=== PATIENT | female | born 1970 | race Caucasian/White ===

== ENCOUNTER 2016-11-27 16:53 | Emergency (ER) | payer OTHER ==
[~2016-11-27] VITALS: Ht 175.3 cm; Wt 120.0 kg
[~2016-11-27 16:53] MED LIST: AMOX500T PO; HYDR-3533 PO; LORTA5 PO; PENI500T PO; Z.0.NO CURRENT MEDS
[2016-11-27 16:55] VITALS: BP 145/78; PULSE 80; RESP 20; TEMP 97.8; O2SAT 97
--- NOTE | 2016-11-27 18:21 | PD ---
HPI Chief Complaint: Abdominal Pain Time Seen by Provider: 18:21 Travel History International Travel<30 days: No Contact w/Intl Traveler<30days: No Traveled to known affect area: No History of Present Illness HPI 46-year-old female with no significant medical history presents to the emergency department for evaluation of low back pain radiating into her lower abdomen. The pelvic pain has been a dull and constant for the last couple weeks but over the last 4-5 days and has began to radiate to her suprapubic area. She believes she may have a UTI. Reports mild increase in urinary urgency and frequency. States that her urine has had a different smell. She has been drinking cranberry juice with no improvement in her symptoms. Denies any vaginal bleeding or discharge. Mild nausea without vomiting. No fever or chills. No other symptoms to report. PFSH Past Medical History Medical History: Denies Significant Hx Arthritis: No Blood Disorders: No Anxiety: No Depression: No Cancer: No Cardiovascular Problems: No Chemotherapy: No Cerebrovascular Accident: No Diminished Hearing: No Endocrine: No Genitourinary: No Headaches: No Immune Disorder: No Musculoskeletal: No Neurologic: No Psychiatric: No Reproductive: No Respiratory: No Migraines: No Radiation Therapy: No Seizures: No ?: Not Menopausal: No : 7 Para: 3 Miscarriage: 4 Tubal Ligation: Yes Past Surgical History Abdominal Surgery: No AICD: No Arteriovenous Shunt: No Body Medical Devices: TONGUE PIERCING Cardiac Surgery: No Ear Surgery: No Endocrine Surgery: No Eye Surgery: No Genitourinary Surgery: No Gynecologic Surgery: Yes (TUBAL LIGATION) Insulin Pump: No Joint Replacement: No Oral Surgery: No Pacemaker: No Thoracic Surgery: No Other Surgery: Yes Social History Alcohol Use: Yes (OCCASIONAL) Tobacco Use: Yes (1 AND 1/2 PPD) Substance Use: No Allergies-Medications (Allergen,Severity, Reaction): Coded Allergies: Bactrim (Verified Allergy, Severe, RASH, N/V, 11/27/16) Reported Meds & Prescriptions Reported Meds & Active Scripts Active No Active Prescriptions or Reported Medications Review of Systems Except as stated in HPI: all other systems reviewed are Neg Physical Exam Narrative GENERAL: Well-nourished female patient, ambulatory and in no acute distress SKIN: Warm and dry. HEAD: Atraumatic. Normocephalic. EYES: Pupils equal and round. No scleral icterus. No injection or drainage. ENT: No nasal bleeding or discharge. Mucous membranes pink and moist. NECK: Trachea midline. No JVD. CARDIOVASCULAR: Regular rate and rhythm. No murmur appreciated. RESPIRATORY: No accessory muscle use. Clear to auscultation. Breath sounds equal bilaterally. GASTROINTESTINAL: Abdomen soft, nondistended. Suprapubic tenderness to palpation. Hepatic and splenic margins not palpable. MUSCULOSKELETAL: No obvious deformities. No clubbing. No cyanosis. No edema. NEUROLOGICAL: Awake and alert. No obvious cranial nerve deficits. Motor grossly within normal limits. Normal speech. PSYCHIATRIC: Appropriate mood and affect; insight and judgment normal. Data Data Last Documented VS Vital Signs Date Time Temp Pulse Resp B/P Pulse Ox O2 Delivery O2 Flow Rate FiO2 11/27/16 18:34 18 11/27/16 16:55 97.8 80 145/78 97 Room Air Orders Urinalysis - C+S If Indicated (11/27/16 18:21) Complete Blood Count With Diff (11/27/16 18:21) Basic Metabolic Panel (Bmp) (11/27/16 18:21) Ed Urine Pregnancytest Poc (11/27/16 19:18) Labs Laboratory Tests Test 11/27/16 11/27/16 18:35 18:40 White Blood Count 10.8 TH/MM3 Red Blood Count 5.14 MIL/MM3 Hemoglobin 15.1 GM/DL Hematocrit 44.3 % Mean Corpuscular Volume 86.2 FL Mean Corpuscular Hemoglobin 29.4 PG Mean Corpuscular Hemoglobin 34.1 % Concent Red Cell Distribution Width 13.7 % Platelet Count 401 TH/MM3 Mean Platelet Volume 7.7 FL Neutrophils (%) (Auto) 55.5 % Lymphocytes (%) (Auto) 31.5 % Monocytes (%) (Auto) 9.0 % Eosinophils (%) (Auto) 2.9 % Basophils (%) (Auto) 1.1 % Neutrophils # (Auto) 6.0 TH/MM3 Lymphocytes # (Auto) 3.4 TH/MM3 Monocytes # (Auto) 1.0 TH/MM3 Eosinophils # (Auto) 0.3 TH/MM3 Basophils # (Auto) 0.1 TH/MM3 CBC Comment DIFF FINAL Differential Comment Sodium Level 140 MEQ/L Potassium Level 3.8 MEQ/L Chloride Level 106 MEQ/L Carbon Dioxide Level 28.4 MEQ/L Anion Gap 6 MEQ/L Blood Urea Nitrogen 13 MG/DL Creatinine 0.86 MG/DL Estimat Glomerular Filtration 72 ML/MIN Rate Random Glucose 103 MG/DL Calcium Level 8.9 MG/DL Urine Color YELLOW Urine Turbidity HAZY Urine pH 6.5 Urine Specific [place] 1.022 Urine Protein NEG mg/dL Urine Glucose (UA) NEG mg/dL Urine Ketones NEG mg/dL Urine Occult Blood NEG Urine Nitrite NEG Urine Bilirubin NEG Urine Urobilinogen 2.0 MG/DL Urine Leukocyte Esterase TRACE Urine RBC LESS THAN 1 /hpf Urine WBC 3 /hpf Urine Squamous Epithelial 5 /hpf Cells Urine Bacteria RARE /hpf Urine Mucus FEW /lpf Urine Yeast (Budding) RARE Microscopic Urinalysis Comment CULT NOT INDICATED MDM Medical Decision Making Medical Screen Exam Complete: Yes Emergency Medical Condition: Yes Medical Record Reviewed: Yes Differential Diagnosis Cystitis versus vaginitis versus urethritis versus pyelonephritis versus low back strain versus discogenic pain versus renal calculi Narrative Course 46-year-old female presents to the emergency department for evaluation. Workup is initiated in triage. Once a medical bed becomes available, patient will be transferred and care assumed by Dr. wise. Scripts No Active Prescriptions or Reported Meds Condition: Stable Linda Almaguer Nov 27, 2016 18:21
[2016-11-27 19:01] LABS: BASOPHIL # 0.1 TH/MM3 (0-0.2); BASOPHIL % 1.1 % (0.0-2.0); EOSINOPHIL # 0.3 TH/MM3 (0-0.4); EOSINOPHIL % 2.9 % (0.0-4.0); HEMATOCRIT 44.3 % (35.0-46.0); HEMO FLAGS DIFF FINAL; LYMPH % 31.5 % (9.0-44.0); LYMPHOCYTE # 3.4 TH/MM3 (1.0-4.8); MEAN CELL VOLUME 86.2 FL (80.0-100.0); MEAN CORPUSCULAR HEMOGLOBIN 29.4 PG (27.0-34.0); MEAN CORPUSCULAR HGB CONC 34.1 % (32.0-36.0); NEUT % 55.5 % (16.0-70.0); PLATELET COUNT 401 TH/MM3 (150-450); RED BLOOD COUNT 5.14 MIL/MM3 (4.00-5.30); RED CELL DISTRIBUTION WIDTH 13.7 % (11.6-17.2); WHITE BLOOD COUNT 10.8 TH/MM3 (4.0-11.0)
--- NOTE | 2016-11-27 19:09 | PD ---
Data Data Last Documented VS Vital Signs Date Time Temp Pulse Resp B/P Pulse Ox O2 Delivery O2 Flow Rate FiO2 11/27/16 18:34 18 11/27/16 16:55 97.8 80 145/78 97 Room Air Orders Urinalysis - C+S If Indicated (11/27/16 18:21) Complete Blood Count With Diff (11/27/16 18:21) Basic Metabolic Panel (Bmp) (11/27/16 18:21) Ed Urine Pregnancytest Poc (11/27/16 19:18) Fluconazole (Diflucan) (11/27/16 20:15) Ibuprofen (Motrin) (11/27/16 20:15) Labs Laboratory Tests Test 11/27/16 11/27/16 18:35 18:40 White Blood Count 10.8 TH/MM3 Red Blood Count 5.14 MIL/MM3 Hemoglobin 15.1 GM/DL Hematocrit 44.3 % Mean Corpuscular Volume 86.2 FL Mean Corpuscular Hemoglobin 29.4 PG Mean Corpuscular Hemoglobin 34.1 % Concent Red Cell Distribution Width 13.7 % Platelet Count 401 TH/MM3 Mean Platelet Volume 7.7 FL Neutrophils (%) (Auto) 55.5 % Lymphocytes (%) (Auto) 31.5 % Monocytes (%) (Auto) 9.0 % Eosinophils (%) (Auto) 2.9 % Basophils (%) (Auto) 1.1 % Neutrophils # (Auto) 6.0 TH/MM3 Lymphocytes # (Auto) 3.4 TH/MM3 Monocytes # (Auto) 1.0 TH/MM3 Eosinophils # (Auto) 0.3 TH/MM3 Basophils # (Auto) 0.1 TH/MM3 CBC Comment DIFF FINAL Differential Comment Sodium Level 140 MEQ/L Potassium Level 3.8 MEQ/L Chloride Level 106 MEQ/L Carbon Dioxide Level 28.4 MEQ/L Anion Gap 6 MEQ/L Blood Urea Nitrogen 13 MG/DL Creatinine 0.86 MG/DL Estimat Glomerular Filtration 72 ML/MIN Rate Random Glucose 103 MG/DL Calcium Level 8.9 MG/DL Urine Color YELLOW Urine Turbidity HAZY Urine pH 6.5 Urine Specific [place] 1.022 Urine Protein NEG mg/dL Urine Glucose (UA) NEG mg/dL Urine Ketones NEG mg/dL Urine Occult Blood NEG Urine Nitrite NEG Urine Bilirubin NEG Urine Urobilinogen 2.0 MG/DL Urine Leukocyte Esterase TRACE Urine RBC LESS THAN 1 /hpf Urine WBC 3 /hpf Urine Squamous Epithelial 5 /hpf Cells Urine Bacteria RARE /hpf Urine Mucus FEW /lpf Urine Yeast (Budding) RARE Microscopic Urinalysis Comment CULT NOT INDICATED MDM Supervised Visit with ZAIN: Yes Narrative Course Patient care assumed from a daily PAC, patient was seen by Linda in triage as part of provider in triage screening. Is a 46-year-old female presents emergency primary for evaluation of low back pain and lower abdomen pain. Patient has had the abdominal pain for the past 4- 5 weeks. Patient does have a burning sensation in her private area. Patient states been burning when she pieces well. After being roomed in the emergency department from provider in triage her UA is noted is negative. Discussed with her indications for genitourinary exam at this time. Discussed with her that there is some yeast in her urine likely contaminant from vaginal discharge. 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 GENERAL: Well-developed well-nourished no apparent distress SKIN: Warm and dry. HEAD: Atraumatic. Normocephalic. EYES: Pupils equal and round. No scleral icterus. No injection or drainage. ENT: No nasal bleeding or discharge. Mucous membranes pink and moist. NECK: Trachea midline. No JVD. CARDIOVASCULAR: Regular rate and rhythm. No murmur appreciated. RESPIRATORY: No accessory muscle use. Clear to auscultation. Breath sounds equal bilaterally. GASTROINTESTINAL: Abdomen soft, non-tender, nondistended. Hepatic and splenic margins not palpable. MUSCULOSKELETAL: No obvious deformities. No clubbing. No cyanosis. No edema. Patient has some mild right lower back tenderness without palpable spasm. Straight leg raise negative, full range of motion in bilateral lower extremities. Pulses motor and sensory intact bilaterally extremity's. No midline CT or L-spine tenderness. NEUROLOGICAL: Awake and alert. No obvious cranial nerve deficits. Motor grossly within normal limits. Normal speech. PSYCHIATRIC: Appropriate mood and affect; insight and judgment normal. Physical exam completely reassuring labs reassuring. Patient given Diflucan in the emergency department. Ibuprofen as well as she is driving home. 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 test negative in the emergency department. Diagnosis Primary Impression: Yeast infection Additional Impression: Back spasm Departure Forms: Tests/Procedures, Work Release Enter return to work date: Nov 29, 2016 Med/Other Pt SpecificInfo: Prescription(s) given Scripts Cyclobenzaprine (Flexeril)10 Mg Tab10 Mg PO TID #20 TAB Ref 0 Prov:Herminio Sepulveda MD 11/27/16 Disposition: 01 DISCHARGE HOME Condition: Stable Herminio Sepulveda MD Nov 27, 2016 19:09
--- NOTE | 2016-11-27 19:09 | PD ---
HPI Chief Complaint: Abdominal Pain Time Seen by Provider: 19:10 Travel History International Travel<30 days: No Contact w/Intl Traveler<30days: No Traveled to known affect area: No PFSH Past Medical History Medical History: Denies Significant Hx Arthritis: No Blood Disorders: No Anxiety: No Depression: No Cancer: No Cardiovascular Problems: No Chemotherapy: No Cerebrovascular Accident: No Diminished Hearing: No Endocrine: No Genitourinary: No Headaches: No Immune Disorder: No Musculoskeletal: No Neurologic: No Psychiatric: No Reproductive: No Respiratory: No Migraines: No Radiation Therapy: No Seizures: No Tetanus Vaccination: > 5 Years Influenza Vaccination: No ?: Not Menopausal: No : 7 Para: 3 Miscarriage: 4 Tubal Ligation: Yes Past Surgical History Abdominal Surgery: No AICD: No Arteriovenous Shunt: No Body Medical Devices: TONGUE PIERCING Cardiac Surgery: No Ear Surgery: No Endocrine Surgery: No Eye Surgery: No Genitourinary Surgery: No Gynecologic Surgery: Yes (TUBAL LIGATION) Insulin Pump: No Joint Replacement: No Oral Surgery: No Pacemaker: No Thoracic Surgery: No Other Surgery: Yes Social History Alcohol Use: Yes (OCCASIONAL) Tobacco Use: Yes (1 AND 1/2 PPD) Substance Use: No Allergies-Medications (Allergen,Severity, Reaction): Coded Allergies: Bactrim (Verified Allergy, Severe, RASH, N/V, 11/27/16) Reported Meds & Prescriptions Reported Meds & Active Scripts Active No Active Prescriptions or Reported Medications Data Data Last Documented VS Vital Signs Date Time Temp Pulse Resp B/P Pulse Ox O2 Delivery O2 Flow Rate FiO2 11/27/16 18:34 18 11/27/16 16:55 97.8 80 145/78 97 Room Air Orders Urinalysis - C+S If Indicated (11/27/16 18:21) Complete Blood Count With Diff (11/27/16 18:21) Basic Metabolic Panel (Bmp) (11/27/16 18:21) Labs Laboratory Tests Test 11/27/16 18:35 White Blood Count 10.8 TH/MM3 Red Blood Count 5.14 MIL/MM3 Hemoglobin 15.1 GM/DL Hematocrit 44.3 % Mean Corpuscular Volume 86.2 FL Mean Corpuscular Hemoglobin 29.4 PG Mean Corpuscular Hemoglobin 34.1 % Concent Red Cell Distribution Width 13.7 % Platelet Count 401 TH/MM3 Mean Platelet Volume 7.7 FL Neutrophils (%) (Auto) 55.5 % Lymphocytes (%) (Auto) 31.5 % Monocytes (%) (Auto) 9.0 % Eosinophils (%) (Auto) 2.9 % Basophils (%) (Auto) 1.1 % Neutrophils # (Auto) 6.0 TH/MM3 Lymphocytes # (Auto) 3.4 TH/MM3 Monocytes # (Auto) 1.0 TH/MM3 Eosinophils # (Auto) 0.3 TH/MM3 Basophils # (Auto) 0.1 TH/MM3 CBC Comment DIFF FINAL Differential Comment MDM Scripts No Active Prescriptions or Reported Meds Condition: Herminio Webber MD Nov 27, 2016 19:09
[2016-11-27 19:13] LABS: BACTERIA, URINE RARE /hpf; BLOOD, URINE NEG (NEG); COMMENT (UR) CULT NOT INDICATED; CULTURE IF INDICATED CULT NOT INDICATED; GLUCOSE,URINE NEG (NEG); KETONE, URINE NEG (NEG); MUCUS URINE FEW /lpf (OCC); NITRITE,URINE NEG (NEG); PH, URINE 6.5 (5.0-8.5); SQUAMOUS EPITHELIAL CELL URINE 5 /hpf (0-5); URINE COLOR YELLOW (YELLW/STRAW)
[2016-11-27 19:26] LABS: BICARBONATE 28.4 MEQ/L (21.0-32.0)
[2016-11-27 19:30] LABS: POTASSIUM 3.8 MEQ/L (3.5-5.1)
[2016-11-27] MEDS ORDERED: IBUPROFEN 600 MG TAB PO ONE (20:15)
[2016-11-27] MEDS ORDERED: FLUCONAZOLE 100 MG TAB PO ONE (20:15)
[2016-11-27] MEDS ORDERED: CYCL1TAB29 PO (20:18)
[2017-03-12] MEDS ORDERED: IBUP200T2 PO (11:06)
[2017-03-12] MEDS ORDERED: LACT10SO PO (11:27)
[2017-03-12] MEDS ORDERED: IBUP-232 PO (11:35)
[2017-03-19] MEDS ORDERED: PRED50 PO (09:43)
[2017-03-19] MEDS ORDERED: MELO7.5T4 PO (09:43)
[2017-03-26] MEDS ORDERED: AMOX500T PO (09:02)
== END 2016-11-27 20:25 | disposition home or self-care (01) ==
LOC: NETRI 16:53 → NEPA 20:25
DX: B37.49 Other urogenital candidiasis (principal); M62.830 Muscle spasm of back
CPT/HCPCS: 80048; 81001; 84703; 85025; 99284

== ENCOUNTER 2017-01-28 22:23 | Observation (INO) | payer OTHER ==
[~2017-01-28] VITALS: Ht 172.7 cm; Wt 105.0 kg
[~2017-01-28 22:23] MED LIST changes: -AMOX500T PO; +CYCL1TAB29 PO; -HYDR-3533 PO; -LORTA5 PO; -PENI500T PO; -Z.0.NO CURRENT MEDS
[2017-01-28 22:26] VITALS: BP 158/84; PULSE 78; RESP 18; TEMP 98.2; O2SAT 100
[2017-01-28] MEDS ORDERED: ONDANSETRON HCL 4 MG/2 ML VIAL IV ONE (23:30)
[2017-01-28] MEDS ORDERED: SODIUM CHLOR 0.9% 1000 ML INJ 1,000 ML IV ONE (23:30)
[2017-01-28 23:56] LABS: AUTOMATED NEUTROPHIL # 7.9 TH/MM3 (1.8-7.7); BASOPHIL # 0.1 TH/MM3 (0-0.2); BASOPHIL % 0.8 % (0.0-2.0); EOSINOPHIL # 0.4 TH/MM3 (0-0.4); EOSINOPHIL % 3.3 % (0.0-4.0); HEMATOCRIT 44.9 % (35.0-46.0); HEMO FLAGS DIFF FINAL; LYMPH % 24.2 % (9.0-44.0); MEAN CELL VOLUME 85.7 FL (80.0-100.0); MEAN CORPUSCULAR HEMOGLOBIN 28.6 PG (27.0-34.0); MEAN CORPUSCULAR HGB CONC 33.4 % (32.0-36.0); MONO % 8.2 % (0.0-8.0); NEUT % 63.5 % (16.0-70.0); PLATELET COUNT 399 TH/MM3 (150-450); RED BLOOD COUNT 5.24 MIL/MM3 (4.00-5.30); RED CELL DISTRIBUTION WIDTH 13.5 % (11.6-17.2); WHITE BLOOD COUNT 12.4 TH/MM3 (4.0-11.0)
--- NOTE | 2017-01-28 23:59 | PD ---
HPI Chief Complaint: Abdominal Pain Time Seen by Provider: 23:19 Travel History International Travel<30 days: No Contact w/Intl Traveler<30days: No Traveled to known affect area: No History of Present Illness HPI The patient is a 46 year old female who presents to the [facility] emergency department with a history of abdominal pain that she reports began when she first woke up to go to work at 4 AM this morning. The patient reports that the pain has been constant. She reports that the pain is present in the right upper quadrant of the abdomen and now travels to her back in the right side of her chest. The patient reports that the pain as a pressure sensation like she has a gas bubble trapped. She reports that she has been moving her bowels normally. She denies any diarrhea. Her last bowel movement was earlier today. She denies having any blood in her stool or black or tarry stools. She denies having any recent weight changes. She denies having any fevers. She reports having nausea but no vomiting. The patient reports that the pain is gradually getting more severe over time. She reports that yesterday she began to have a pressure with urinating and has had urinary frequency, however no urinary urgency. She denies having any blood in her urine. The patient denies any cough, congestion, neck pain, shortness of breath, or neurologic symptoms. LMP: She is currently finishing her menstrual cycle. She reports that it is a normal cycle for her. [facility] Past Medical History Narrative Medical The patient's past medical history is reportedly none. Arthritis: No Blood Disorders: No Anxiety: No Depression: No Cancer: No Cardiovascular Problems: No Chemotherapy: No Cerebrovascular Accident: No Diminished Hearing: No Endocrine: No Genitourinary: No Headaches: No Immune Disorder: No Musculoskeletal: No Neurologic: No Psychiatric: No Reproductive: No Respiratory: No Immunizations Current: Yes Migraines: No Radiation Therapy: No Seizures: No ?: Not Menopausal: No : 7 Para: 3 Miscarriage: 4 Tubal Ligation: Yes Past Surgical History Narrative Surgical The patient's past surgical history is significant for bilateral tubal ligation. Surgical History: No Previous Surgery Abdominal Surgery: No AICD: No Arteriovenous Shunt: No Body Medical Devices: TONGUE PIERCING Cardiac Surgery: No Ear Surgery: No Endocrine Surgery: No Eye Surgery: No Genitourinary Surgery: No Gynecologic Surgery: Yes (TUBAL LIGATION) Insulin Pump: No Joint Replacement: No Oral Surgery: No Pacemaker: No Thoracic Surgery: No Other Surgery: Yes Social History Alcohol Use: No Tobacco Use: Yes (1 ppd) Substance Use: No Allergies-Medications (Allergen,Severity, Reaction): Coded Allergies: Bactrim (Verified Allergy, Severe, RASH, N/V, 01/28/17) Reported Meds & Prescriptions Reported Meds & Active Scripts Active Review of Systems Except as stated in HPI: all other systems reviewed are Neg General / Constitutional: No: Fever Eyes: No: Visual changes HENT: No: Headaches Cardiovascular: Positive: Chest Pain or Discomfort (abdominal pain radiates into the right chest) Respiratory: No: Shortness of Breath Gastrointestinal: Positive: Nausea, Abdominal Pain, Loss of Appetite, No: Vomiting, Diarrhea, Hematemesis, Hematochezia, Constipation, Changes in Bowel Habits, Indigestion Genitourinary: No: Dysuria Musculoskeletal: No: Pain Skin: No Rash Neurologic: No: Weakness Psychiatric: No: Depression Endocrine: No: Polydipsia Hematologic/Lymphatic: No: Easy Bruising Physical Exam Narrative General: The patient is a well-developed well-nourished female with discomfort noted on examination holding the right upper quadrant of the abdomen. Head and Neck exam: Head is normocephalic atraumatic. Eyes: EOMI, pupils are equal round and reactive to light. Nose: Midline septum with pink mucous membranes Mouth: Dentition unremarkable. Moist mucus membranes. Posterior oropharynx is not erythematous. No tonsillar hypertrophy. Uvula midline. Airway patent. Neck: No palpable lymphadenopathy. No nuchal rigidity. No thyromegaly. Cardiovascular: Regular rate and rhythm without murmurs, gallops, or rubs. Lungs: Clear to auscultation bilaterally. No wheezes, rhonchi, or rales. Abdomen: Soft, tenderness on palpation of the right upper quadrant of the abdomen and midepigastric area with a positive Christian sign, no other tenderness on palpation of the other quadrants of the abdomen. Normal bowel sounds are audible. No guarding, rebound, or rigidity. No tenderness on palpation of McBurney's point. Extremities: No clubbing, cyanosis, or edema. 2+ pulses in all 4 extremities. No calf tenderness on palpation Back: No spinous process tenderness to palpation. The patient has right-sided CVA tenderness on palpation. Neurologic Exam: Grossly nonfocal. Skin Exam: No rash noted. Intact skin that is warm and dry. Data Data Last Documented VS Vital Signs Date Time Temp Pulse Resp B/P Pulse Ox O2 Delivery O2 Flow Rate FiO2 01/28/17 22:26 98.2 78 18 158/84 100 Orders Complete Blood Count With Diff (01/28/17 23:22) Comprehensive Metabolic Panel (01/28/17 23:22) C-Reactive Protein (Crp) (01/28/17 23:22) Lipase (01/28/17 23:22) Urinalysis - C+S If Indicated (01/28/17 23:22) Magnesium (Mg) (01/28/17 23:22) Iv Access Insert/Monitor (01/28/17 23:22) Ecg Monitoring (01/28/17 23:22) Oximetry (01/28/17 23:22) Ed Urine Pregnancytest Poc (01/28/17 23:22) Ondansetron Inj (Zofran Inj) (01/28/17 23:30) Sodium Chlor 0.9% 1000 Ml Inj (Ns 1000 M (01/28/17 23:30) Morphine Inj (Morphine Inj) (01/29/17 00:00) Ct Abd/Pel W Iv Contrast(Rout) (01/29/17 ) Prochlorperazine Inj (Compazine Inj) (01/29/17 00:45) Sodium Chlorid 0.9% 500 Ml Inj (Ns 500 M (01/29/17 00:45) Iohexol 350 Inj (Omnipaque 350 Inj) (01/29/17 01:07) Piperacil-Tazo 3.375 Gm Premix (Zosyn 3. (01/29/17 01:30) Admit Order (Ed Use Only) (01/29/17 01:47) Labs Laboratory Tests Test 01/28/17 01/28/17 02:20 23:30 Urine Color YELLOW Urine Turbidity CLEAR Urine pH 7.0 Urine Specific [place] GREATER THAN 1.050 Urine Protein TRACE mg/dL Urine Glucose (UA) NEG mg/dL Urine Ketones NEG mg/dL Urine Occult Blood MOD Urine Nitrite NEG Urine Bilirubin NEG Urine Urobilinogen LESS THAN 2.0 MG/DL Urine Leukocyte Esterase NEG Urine RBC 1 /hpf Urine WBC 1 /hpf Urine Squamous Epithelial 9 /hpf Cells Urine Mucus FEW /lpf Microscopic Urinalysis Comment CULT NOT INDICATED White Blood Count 12.4 TH/MM3 Red Blood Count 5.24 MIL/MM3 Hemoglobin 15.0 GM/DL Hematocrit 44.9 % Mean Corpuscular Volume 85.7 FL Mean Corpuscular Hemoglobin 28.6 PG Mean Corpuscular Hemoglobin 33.4 % Concent Red Cell Distribution Width 13.5 % Platelet Count 399 TH/MM3 Mean Platelet Volume 7.7 FL Neutrophils (%) (Auto) 63.5 % Lymphocytes (%) (Auto) 24.2 % Monocytes (%) (Auto) 8.2 % Eosinophils (%) (Auto) 3.3 % Basophils (%) (Auto) 0.8 % Neutrophils # (Auto) 7.9 TH/MM3 Lymphocytes # (Auto) 3.0 TH/MM3 Monocytes # (Auto) 1.0 TH/MM3 Eosinophils # (Auto) 0.4 TH/MM3 Basophils # (Auto) 0.1 TH/MM3 CBC Comment DIFF FINAL Differential Comment Sodium Level 139 MEQ/L Potassium Level 3.7 MEQ/L Chloride Level 105 MEQ/L Carbon Dioxide Level 29.8 MEQ/L Anion Gap 4 MEQ/L Blood Urea Nitrogen 9 MG/DL Creatinine 0.70 MG/DL Estimat Glomerular Filtration 91 ML/MIN Rate Random Glucose 121 MG/DL Calcium Level 8.8 MG/DL Magnesium Level 2.3 MG/DL Total Bilirubin 0.2 MG/DL Aspartate Amino Transf 19 U/L (AST/SGOT) Alanine Aminotransferase 24 U/L (ALT/SGPT) Alkaline Phosphatase 83 U/L C-Reactive Protein 0.46 MG/DL Total Protein 7.7 GM/DL Albumin 3.7 GM/DL Lipase 138 U/L MDM Medical Decision Making Medical Screen Exam Complete: Yes Emergency Medical Condition: Yes Medical Record Reviewed: Yes Differential Diagnosis Biliary colic, versus acute cholecystitis, versus choledocholithiasis, versus pancreatitis, versus hepatitis, versus pyelonephritis, versus kidney stone Narrative Course During the course of the patients emergency department visit, the patients history, examination, and differential diagnosis were reviewed with the patient. The patient had IV access obtained and blood work sent for analysis. The patient was placed on a front desk monitor with oximetry and blood pressure monitoring. A CT scan of abdomen and pelvis was ordered. A bedside test was negative for The patient was initially provided normal saline 1 L IV fluid bolus, Zofran 4 mg IV times one for nausea, morphine 4 mg IV times one for pain. The patients laboratory studies were reviewed and remarkable for a white count 12.4, hemoglobin 15, platelets 399 with an 8.2 monocytes. CMP is remarkable for an anion gap of 4, glucose 121, C-reactive protein 0.46, lipase 138, urinalysis shows concentrated urine with a specific gravity greater than 1.05, moderate occult blood, 1 RBC, otherwise unremarkable. Radiology studies were reviewed and remarkable for a CT scan of the abdomen and pelvis that shows thickening of the gallbladder wall suggestive of some degree of gallbladder disease, no definite gallstones are seen on this exam. The patient's liver is also noted to be enlarged measuring 27.8 cm. Due to the patient's examination being consistent with acute cholecystitis the patient's case was discussed with the general surgeon. The Patient's given a dose of Zosyn 3.375 g IV. The patients results were discussed with the patient, including the plan of care. I explained that further testing and/ or monitoring is indicated based on the patients history, examination, and/ or laboratory findings. Therefore, I recommended admission for additional evaluation. The patient expressed understanding and was agreeable with this plan. The patient was admitted to the hospital in stable condition and sent to a bed under the care of Dr. Caballero, the general surgeon. Physician Communication Physician Communication I spoke to Dr. Caballero regarding this patient's case at approximately 1:45 AM. He did agree to admit the patient for further evaluation and treatment at this time. Diagnosis Primary Impression: Abdominal pain Qualified Code: R10.11 - Right upper quadrant abdominal pain Additional Impression: Thickening of wall of gallbladder Admitting Information Admitting Physician Requests: Admit Cuca Lynne MD Jan 28, 2017 23:59
[2017-01-29] MEDS ORDERED: MORPHINE SULFATE 4 MG/ML INJ IV PUSH ONE
[2017-01-29 00:05] LABS: ALKALINE PHOSPHATASE 83 U/L (45-117); TOTAL BILIRUBIN ADULT 0.2 MG/DL (0.2-1.0)
[2017-01-29 00:08] LABS: ALT (GPT) 24 U/L (10-53); ANION GAP 4 MEQ/L (5-15); AST (GOT) 19 U/L (15-37); BICARBONATE 29.8 MEQ/L (21.0-32.0); BLOOD UREA NITROGEN 9 MG/DL (7-18); CHLORIDE 105 MEQ/L (98-107); GLOMERULAR FILTRATION RATE 91 ML/MIN (>89); MAGNESIUM 2.3 MG/DL (1.5-2.5); POTASSIUM 3.7 MEQ/L (3.5-5.1); SODIUM (NA) 139 MEQ/L (136-145)
[2017-01-29] MEDS ORDERED: PROCHLORPERAZINE INJ 10 MG/2 ML VIAL IV PUSH ONE (00:45)
[2017-01-29] MEDS ORDERED: SODIUM CHLORID 0.9% 500 ML INJ 500 ML IV ONE (00:45)
[2017-01-29] MEDS ORDERED: IOHEXOL 350 MG/ML 10 ML VIAL (for RAD DIAG) IV ONE (01:07)
--- NOTE | 2017-01-29 01:28 | RADRPT ---
EXAM DATE/TIME: 01/29/2017 01:04 [facility] COMPARISON: No previous studies available for comparison. INDICATIONS : Right sided abdomen pain with nausea. IV CONTRAST: 95 cc Omnipaque 350 (iohexol) IV ORAL CONTRAST: No oral contrast ingested. RADIATION DOSE: 16.53 CTDIvol (mGy) MEDICAL HISTORY : None SURGICAL HISTORY : Tubal ligation. ENCOUNTER: Initial ACUITY: 1 day PAIN SCALE: 8/10 LOCATION: Right lower quadrant TECHNIQUE: Volumetric scanning of the abdomen and pelvis was performed. Using automated exposure control and ad justment of the mA and/or kV according to patient size, radiation dose was kept as low as reasonably achievable to obtain optimal diagnostic quality images. FINDINGS: LOWER LUNGS: Nonspecific 5 mm pulmonary nodule left lung base. Right lung base is clear. LIVER: Homogeneous density without lesion. The liver appears to be enlarged measuring 27.8 cm in length. Th ere is no dilation of the biliary tree. No calcified gallstones. However, there is thickening of the gallbladder wall suggestive of some degree of gallbladder disease. SPLEEN: Normal size without lesion. PANCREAS: Within normal limits. KIDNEYS: Normal in size and shape. There is no mass, stone or hydronephrosis. ADRENAL GLANDS: Within normal limits. VASCULAR: There is no aortic aneurysm. BOWEL/MESENTERY: The stomach, small bowel, and colon demonstrate no acute abnormality. There is no free intraperitone al air or fluid. No inflammatory changes. A few scattered diverticula are seen along the sigmoid colo n without inflammatory changes. ABDOMINAL WALL: Within normal limits. RETROPERITONEUM: There is no lymphadenopathy. BLADDER: No wall thickening or mass. REPRODUCTIVE: There is a 2.5 cm right adnexal cyst. No free fluid in the cul-de-sac. Uterus is normal in size. INGUINAL: There is no lymphadenopathy or hernia. MUSCULOSKELETAL: Within normal limits for patient age. CONCLUSION: 1. The liver appears to be common in size measuring 27.8 cm in length. 2. There is thickening of the gallbladder wall suggestive of some degree of gallbladder disease. No d efinite gallstones are seen on this exam. 3. Nonspecific 5 mm pulmonary nodule in the left lung base. On a nonemergent outpatient basis, recomm end a dedicated noncontrast CT scan of the thorax for further evaluation. 4. 2.5 cm right adnexal cyst. This is most likely a right ovarian cyst. 5. Diverticulosis of the sigmoid colon without inflammatory changes. Casper Spencer MD on January 29, 2017 at 1:20 Board Certified Radiologist. This report was verified electronically.
[2017-01-29] MEDS ORDERED: PIPERACIL-TAZO 3.375 GM PREMIX 50 ML IV ONE (01:30)
[2017-01-29 01:57] VITALS: BP 110/70; PULSE 71; RESP 16; O2SAT 98
[2017-01-29] MEDS ORDERED: ONDANSETRON HCL 4 MG/2 ML VIAL IV PRN (02:00)
[2017-01-29] MEDS ORDERED: MORPHINE SULFATE 4 MG/ML INJ IV PUSH PRN (02:00)
[2017-01-29] MEDS ORDERED: SODIUM CHLORIDE 0.9% FLUSH 10 ML FLUSH IV FLUSH PRN (02:00)
[2017-01-29 02:29] LABS: BLOOD, URINE MOD (NEG); COMMENT (UR) CULT NOT INDICATED; CULTURE IF INDICATED CULT NOT INDICATED; GLUCOSE,URINE NEG (NEG); KETONE, URINE NEG (NEG); MUCUS URINE FEW /lpf (OCC); NITRITE,URINE NEG (NEG); SQUAMOUS EPITHELIAL CELL URINE 9 /hpf (0-5); URINE COLOR YELLOW (YELLW/STRAW)
[2017-01-29] MEDS: SODIUM CHLOR 0.9% 1000 ML INJ 1,000 ML IV SCH ×2 (02:55→09:30)
[2017-01-29 04:15] VITALS: BP 115/73; PULSE 74; RESP 16; O2SAT 98
[2017-01-29] MEDS: PIPERACIL-TAZO 3.375 GM PREMIX 50 ML IV SCH ×2 (08:05→13:30)
[2017-01-29 08:30] VITALS: BP 125/80; PULSE 65; RESP 18; O2SAT 100
[2017-01-29] MEDS ORDERED: SODIUM CHLORIDE 0.9% FLUSH 10 ML FLUSH IV FLUSH SCH (09:00)
[2017-01-29] MEDS: BUPIVACAINE/EPINEPHRINE 0.25% PF 30 ML VIAL ONE ×2 (09:41→13:13)
[2017-01-29] MEDS ORDERED: ACETAMINOPHEN 1000 MG/100 ML VIAL IV ONE (11:09)
[2017-01-29] MEDS ORDERED: FAMOTIDINE 20 MG/2 ML VIAL ONE (11:09)
[2017-01-29] MEDS ORDERED: DEXAMETHASONE SOD PHOS 4 MG/ML VIAL ONE (12:39)
[2017-01-29] MEDS ORDERED: MIDAZOLAM HCL 2 MG/2 ML VIAL ONE (12:39)
[2017-01-29] MEDS ORDERED: ONDANSETRON HCL 4 MG/2 ML VIAL IV PUSH ONE (12:41)
[2017-01-29] MEDS ORDERED: PROPOFOL 200 MG/20 ML AMP IV ONE (12:41)
[2017-01-29] MEDS ORDERED: NEOSTIGMINE 3 MG/3 ML SYR IV ONE (12:41)
--- NOTE | 2017-01-29 13:05 | HHI.HP ---
HPI Service General Surgery Primary Care Physician No Primary Care Physician Admission Diagnosis Suspected Acute cholecystitis, intractable RUQ abdominal pain Chief Complaint: Abdominal pain History of Present Illness This is a 46-year-old female who 2 days ago developed abdominal bloating and then yesterday morning with severe right upper quadrant abdominal pain. The pain travels to her back. She has had nausea but no vomiting. Past surgical history includes tubal ligation. She was evaluated in the emergency department and noted have leukocytosis and a CT scan concerning for acute cholecystitis. Review of Systems Constitutional: DENIES: Fever, Chills Eyes: DENIES: Eye inflammation, Eye pain Respiratory: DENIES: Cough, Wheezing Cardiovascular: DENIES: Chest pain, Palpitations Gastrointestinal: COMPLAINS OF: Abdominal pain, Nausea Integumentary: DENIES: Pruritus, Rash Past Family Social History Past Medical History None Past Surgical History Tubal ligation Reported Medications Reported Meds & Active Scripts Active Allergies: Coded Allergies: Bactrim (Verified Allergy, Severe, RASH, N/V, 01/28/17) Active Ordered Medications Current Medications Medications (Trade) Dose Ordered Sig/Ursula Route Start Time Stop Time Status Last Admin (NS 1000 ml Inj) 1,000 ml @ 125 mls/hr Q8H IV 01/29/17 01:49 01/29/17 09:30 (NS Flush) 2 ml UNSCH PRN IV FLUSH 01/29/17 02:00 01/29/17 08:04 Sodium Chloride 2 ml 2 ml BID IV FLUSH 01/29/17 09:00 01/29/17 09:00 (Zosyn 3.375 Gm Premix) 50 ml @ 100 mls/hr Q6H IV 01/29/17 08:00 01/29/17 08:05 (Zofran Inj) 4 mg Q6H PRN IV 01/29/17 02:00 (Morphine Inj) 4 mg Q3H PRN IV PUSH 01/29/17 02:00 Family History Noncontributory Social History She smokes 1 pack of cigarettes daily. No alcohol or drug use. Physical Exam Vital Signs Vital Signs Date Time Temp Pulse Resp B/P Pulse Ox O2 Delivery O2 Flow Rate FiO2 01/29/17 08:30 65 18 125/80 100 Room Air 01/29/17 08:30 18 01/29/17 04:15 74 16 115/73 98 Room Air 01/29/17 01:57 71 16 110/70 98 Room Air 01/28/17 22:26 98.2 78 18 158/84 100 Physical Exam GENERAL: Awake and alert. No acute distress. Cooperative. HEAD: Normocephalic. Atraumatic. EYES: Pupils equal round and reactive to light bilaterally. No scleral icterus. CHEST: Lungs clear to auscultation bilaterally with no wheezing or rhonchi. No respiratory distress. CARDIOVASCULAR: Regular rate and rhythm. ABDOMEN: Moderate to severe right upper quadrant tenderness to palpation. Otherwise soft and nontender. Well-healed port site incision at the umbilicus. EXTREMITIES: No cyanosis or edema. SKIN: Warm, dry, nonjaundiced. Laboratory Laboratory Tests Test 01/28/17 23:30 White Blood Count 12.4 Red Blood Count 5.24 Hemoglobin 15.0 Hematocrit 44.9 Mean Corpuscular Volume 85.7 Mean Corpuscular Hemoglobin 28.6 Mean Corpuscular Hemoglobin 33.4 Concent Red Cell Distribution Width 13.5 Platelet Count 399 Mean Platelet Volume 7.7 Neutrophils (%) (Auto) 63.5 Lymphocytes (%) (Auto) 24.2 Monocytes (%) (Auto) 8.2 Eosinophils (%) (Auto) 3.3 Basophils (%) (Auto) 0.8 Neutrophils # (Auto) 7.9 Lymphocytes # (Auto) 3.0 Monocytes # (Auto) 1.0 Eosinophils # (Auto) 0.4 Basophils # (Auto) 0.1 CBC Comment DIFF FINAL Differential Comment Sodium Level 139 Potassium Level 3.7 Chloride Level 105 Carbon Dioxide Level 29.8 Anion Gap 4 Blood Urea Nitrogen 9 Creatinine 0.70 Estimat Glomerular Filtration 91 Rate Random Glucose 121 Calcium Level 8.8 Magnesium Level 2.3 Total Bilirubin 0.2 Aspartate Amino Transf 19 (AST/SGOT) Alanine Aminotransferase 24 (ALT/SGPT) Alkaline Phosphatase 83 C-Reactive Protein 0.46 Total Protein 7.7 Albumin 3.7 Lipase 138 Result Diagram: 01/28/17 2330 01/28/17 2330 Imaging Last Impressions Abdomen/Pelvis CT 01/29/17 0000 Signed Impressions: Service Date/Time: Sunday, January 29, 2017 01:04 - CONCLUSION: 1. The liver appears to be common in size measuring 27.8 cm in length. 2. There is thickening of the gallbladder wall suggestive of some degree of gallbladder disease. No definite gallstones are seen on this exam. 3. Nonspecific 5 mm pulmonary nodule in the left lung base. On a nonemergent outpatient basis, recommend a dedicated noncontrast CT scan of the thorax for further evaluation. 4. 2.5 cm right adnexal cyst. This is most likely a right ovarian cyst. 5. Diverticulosis of the sigmoid colon without inflammatory changes. Casper Spencer MD Assessment and Plan Assessment and Plan 46-year-old female with an evaluation consistent with acute cholecystitis. I recommend to proceed with laparoscopic cholecystectomy, possible open. I discussed the details and risks of the surgery with the patient and she desires to proceed. She does have a pulmonary nodule in the chest on CT scan which these to be followed as an outpatient. Rakesh Caballero MD Jan 29, 2017 13:05
--- NOTE | 2017-01-29 14:22 | PD.OP ---
cc: Rakesh Caballero MD Operative Report Date of Surgery: Jan 29, 2017 Preoperative Diagnosis: (1) Acute cholecystitis Postoperative Diagnosis: (1) Acute cholecystitis Procedure: Laparoscopic cholecystectomy Anesthesia: GETA Surgeon: Rakesh Caballero Pantry Worker(s): Júnior DUNN Operation and Findings: Complications: None apparent EBL: 20 cc Operative findings: The gallbladder wall inflammation and edema. Procedure in detail: The patient was taken to the operating room and placed in the supine position. General endotracheal anesthesia was induced. The abdomen was prepped and draped in usual sterile fashion and a surgical timeout was performed to verify correct patient procedure and site. Appropriate perioperative antibiotics were administered. Local anesthetic was injected in the skin and subcutaneous tissue superior to the umbilicus and a 5 mm incision performed. The abdomen was entered using the Optiview 5 mm trocar with direct laparoscopic visualization. The abdomen was then insufflated to 15 mmHg with CO2 gas which the patient tolerated well. Next a 12 mm port was placed in the epigastrium and two 5 mm ports in the right upper quadrant and right lateral abdomen. The patient was placed in reverse Trendelenburg position and turned slightly to the left. Attention was turned to the right upper quadrant and the dome of the gallbladder was grasped and retracted cephalad. The infundibulum was retracted laterally to expose Calot's triangle. Blunt dissection and judicious use of electrocautery was used to expose the cystic duct and the cystic artery directly entering the gallbladder. Two clips were placed proximally on each of these structures and one distally and they were transected. The gallbladder was then removed from the liver bed using electrocautery. Hemostasis was achieved. The gallbladder was then removed from the abdomen using an Endo Catch bag after enlarging the fascial incision as the gallbladder was quite large. The clips were in place on the cystic duct and cystic artery stumps with no bleeding or bile leakage. At this point, the abdomen was allowed to desufflate and trochars were removed. The fascia at the 12 mm port site was closed with 0 Vicryl suture. Skin was closed with subcuticular 4-0 Monocryl as well as Dermabond. The patient tolerated the procedure well and was extubated and taken to PACU in stable condition. All sponge and instrument counts were correct. Rakesh Caballero MD Jan 29, 2017 14:22
[2017-01-29] MEDS ORDERED: NORC5TAB PO (14:23)
[2017-01-29] MEDS ORDERED: ACETAMINOPHEN/HYDROcodone 325 MG/5 MG TAB PO PRN ×2 (14:30)
[2017-01-29] MEDS ORDERED: DO NOT ADM ANY ANTICOAGULANT DRUGS PRN (14:31)
[2017-01-29] MEDS ORDERED: *morphine SULFATE 8 MG/ML PERIprocedure ONLY ONE (14:36)
[2017-01-29] MEDS ORDERED: fentaNYL CITRATE 250 MCG/5 ML AMP ONE (14:39)
[2017-01-29] MEDS ORDERED: MORPHINE SULFATE 4 MG/ML INJ ONE (14:40)
[2017-01-29 16:00] VITALS: BP 128/69; PULSE 65; RESP 16; TEMP 98.4; O2SAT 95
[2017-03-12] MEDS ORDERED: IBUP200T2 PO (11:06)
[2017-03-12] MEDS ORDERED: LACT10SO PO (11:27)
[2017-03-12] MEDS ORDERED: IBUP-232 PO (11:35)
[2017-03-19] MEDS ORDERED: PRED50 PO (09:43)
[2017-03-19] MEDS ORDERED: MELO7.5T4 PO (09:43)
[2017-03-26] MEDS ORDERED: AMOX500T PO (09:02)
== END 2017-01-29 16:05 | disposition home or self-care (01) ==
LOC: NEPE 22:23 → INTOOBSV 01-29 01:49 → NEDA 01-29 01:49
PROVIDERS: ADMIT Surgery; ATTEND Surgery
DX: K80.00 Calculus of gallbladder with acute cholecystitis without obstruction (principal); R11.0 Nausea; R35.0 Frequency of micturition; F17.210 Nicotine dependence, cigarettes, uncomplicated
CPT/HCPCS: 00790; 47562; 74177; 80053; 81001; 83690; 83735; 84703; 85025; 86140; 88304; 96361; 96374; 96375; 99285; G0378; J0131; J0780; J1100; J2250; J2270; J2405; J2543; J2710; J3010; J7030; J7040; Q9967

== ENCOUNTER → 2017-03-13 | Outpatient (CLI) | payer OTHER ==
[~2017-03-13] MED LIST changes: +AMOX500T PO; -CYCL1TAB29 PO; +IBUP-232 PO; +LACT10SO PO; +MELO7.5T4 PO; +PRED50 PO
--- NOTE | 2017-03-13 17:31 | RADRPT ---
EXAM DATE/TIME: 03/13/2017 15:03 [facility] COMPARISON: No previous studies available for comparison. INDICATIONS : Right foot pain, no known trauma. MEDICAL HISTORY : None. SURGICAL HISTORY : None. ENCOUNTER: Initial ACUITY: 4 - 6 months PAIN SCORE: 6/10 LOCATION: Right foot FINDINGS: Three view examination of the right foot demonstrates no soft tissue swelling, dislocation, or fractu re. The tarsal bones appear intact. The interphalangeal and metatarsophalangeal joints are intact. The calcaneus is intact. Bony mineralization is normal. Incidental note of a moderate sized os ti biale externum. CONCLUSION: Prominent os tibiale externum. Otherwise negative exam. Tahir Briggs MD on March 13, 2017 at 17:29 Board Certified Radiologist. This report was verified electronically.
== END ==
LOC: HRAD 14:34
PROVIDERS: ATTEND Nurse Practitioner Family
DX: M79.671 Pain in right foot (principal)
CPT/HCPCS: 73630

== ENCOUNTER → 2017-03-14 | Outpatient (CLI) | payer OTHER ==
[2017-03-14 08:52] LABS: HDL CHOLESTEROL 33.9 MG/DL (40.0-60.0)
== END ==
LOC: CLAB 07:57
PROVIDERS: ATTEND Nurse Practitioner Family
DX: K59.00 Constipation, unspecified (principal)
CPT/HCPCS: 36415; 80061

== ENCOUNTER → 2017-03-19 | Outpatient (CLI) | payer OTHER ==
[2017-03-19 11:19] LABS: RHEUMATOID FACTOR TRIGGER LESS THAN 10.0 IU/ML (0.0-14.9)
[2017-03-19 16:06] LABS: HEMOGLOBIN A1a 1.1 %; HEMOGLOBIN A1b 1.8 %; HEMOGLOBIN Ao 84.7 %; HEMOGLOBIN LA1C 2.1 %; HEMOGLOBIN P3 3.8 %
== END ==
LOC: CLAB 10:10
PROVIDERS: ATTEND Nurse Practitioner Family
DX: M25.50 Pain in unspecified joint (principal); Z83.3 Family history of diabetes mellitus
CPT/HCPCS: 36415; 83036; 86038; 86430